=== PATIENT | female | born 1990 | race Caucasian/White ===

== ENCOUNTER 2020-10-01 15:05 | Emergency (ER) | payer OTHER, SELFPAY ==
[2020-10-01] VITALS (8 sets, daily range): BP systolic 115–158; BP diastolic 82–93; PULSE 70–103; RESP 18–20; TEMP 36.5–36.9; O2SAT 97–100
[2020-10-01 15:43] LABS: Basophils Percent Auto 0.3 % (0.2-1.2); Eosinophils Absolute Auto 0.1 K/mm3 (0-0.3); Eosinophils Percent Auto 0.8 % (0-4.4); Hemoglobin 9.8 g/dL (12.0-15.0); Immature Granulocyte Absolute 0.01 K/mm3 (0.00-0.031); Immature Granulocyte Percent A 0.2 % (0-0.5); Lymphocytes Absolute Auto 1.86 K/mm3 (0.9-3.2); Lymphocytes Percent Auto 29.7 % (18.3-44.2); Mean Corpuscular HGB Conc 33.8 g/dl (32-36); Mean Corpuscular Volume 94.8 fl (80-100); Mean Platelet Volume 10.2 fl (7.4-10.4); Monocytes Absolute Auto 0.5 K/mm3 (0.1-0.6); Monocytes Percent Auto 7.8 % (2.6-8.5); Neutrophils Absolute Auto 3.8 K/mm3 (1.3-6.7); Neutrophils Percent Auto 61.2 % (45.5-73.1); Platelet Count Result 238 k/mm3 (150-375); Red Blood Count 3.06 M/mm3 (4.2-5.4); Red Cell Distribution Width 12.3 % (11.5-14.5); White Blood Count 6.3 K/mm3 (4.5-10.0)
[2020-10-01 15:52] LABS: Anion Gap 4 mmol/L (8-16); Blood Urea Nitrogen 11 mg/dL (7-17); Calcium 9.4 mg/dL (8.4-10.2); Carbon Dioxide 28 mmol/L (22-30); Chloride 108 mmol/L (98-107); Estimated CRCL calculation 91 ml/min; Estimated Glomerular Filt Rate > 60; Glucose 127 mg/dL (65-105); Potassium 3.7 mmol/L (3.4-5.0); Sodium 140 mmol/L (137-145)
--- NOTE | 2020-10-01 15:56 | ED.GENADULT ---
HPI - General Adult General Chief complaint: Vaginal Bleeding Stated complaint: vaginal bleeding Time Seen by Provider: 10/01/20 15:15 Source: patient and RN notes reviewed Mode of arrival: ambulatory Limitations: no limitations History of Present Illness HPI narrative: Patient is a 30-year-old female who presents with vaginal bleeding has been present since 11:00 today patient notes she went through 3 tampons during this. Was in the shower for a prolonged period notes cramping of the abdomen patient has had this issue off and on usually spontaneously resolves patient is currently being monitored by gynecology for this is waiting to biopsy patient has history of tubal ligation would like hysterectomy or D&C moving forward patient notes minimal discomfort is not taken anything for symptoms presents per private vehicle patient is from [facility] patient is here with her children who are at an event. Patient on arrival does not appear uncomfortable or distressed. Patient notes she was in the emergency department on and her hemoglobin was around 9. Review of Systems Review of Systems: All systems reviewed & are unremarkable except as noted in HPI and below PMFSH Past Medical History Medical History (Updated 10/01/20 @ 15:59 by Jerry Angel PA-C) Factor V Leiden Surgical History Surgical History (Updated 10/01/20 @ 15:57 by Jerry Angel PA-C) H/O tubal ligation Social History Social History (Updated 10/01/20 @ 15:58 by Jerry Angel PA-C) Smoking status: Never smoker Gender identity (if verbalized by the patient): Female Exam Narrative: Exam Narrative: GENERAL: Well-appearing, well-nourished, and in no acute distress. HEAD: Normocephalic, atraumatic. EYES: PERRLA and EOMI. ENT: Nares clear, no rhinorrhea or epistaxis. Mucous membranes moist. CHEST: Clear to auscultation. No respiratory distress. No wheezes rales or rhonchi HEART: Regular rate and rhythm. No murmur heard. Normal peripheral pulses. ABDOMEN: Soft, nontender, nondistended FEMALE GENITOURINARY: Some dark blood in the vault no excessive bleeding otherwise unremarkable exam EXTREMITIES: Normal range of motion. No edema. SKIN: Warm, dry, no rash. NEURO: No focal deficits. Alert and oriented x3. PSYCH: Normal mood and affect. Course Course Emergency Course: Patient evaluated in the emergency department found to have vaginal bleeding hemodynamically stable hemoglobin at 9.8 she will be discharged with follow-up with her business solutions director patient agrees with this plan she has been advised to go home to rest and contact her business solutions director for thing in the morning has been given bleeding and pelvic precautions Vital Signs Vital signs: Vital Signs Temperature 97.7 F 10/01/20 15:07 Pulse Rate 103 H 10/01/20 15:07 Respiratory Rate 20 10/01/20 15:07 Blood Pressure 158/91 H 10/01/20 15:07 Pulse Oximetry 100 10/01/20 15:07 Temperature 98.5 F 10/01/20 16:20 Pulse Rate 71 10/01/20 16:20 Respiratory Rate 18 10/01/20 16:20 Blood Pressure 130/85 10/01/20 16:20 Pulse Oximetry 99 10/01/20 16:20 Medical Decision Making MDM Narrative Medical decision making narrative: ABCs and vital signs intact and stable patient aware of case findings treatment plan and diagnosis will be discharged home with plan follow-up with her business solutions director felt appropriate for outpatient reevaluation at this time Vital Signs Vital Signs: Vital Signs Temperature 97.7 F 10/01/20 15:07 Pulse Rate 103 H 10/01/20 15:07 Respiratory Rate 20 10/01/20 15:07 Blood Pressure 158/91 H 10/01/20 15:07 Pulse Oximetry 100 10/01/20 15:07 Temperature 98.5 F 10/01/20 16:20 Pulse Rate 71 10/01/20 16:20 Respiratory Rate 18 10/01/20 16:20 Blood Pressure 130/85 10/01/20 16:20 Pulse Oximetry 99 10/01/20 16:20 Lab Data Result diagrams: 10/01/20 15:38 10/01/20 15:38 Labs: Lab Results
[2020-10-01] MEDS: ONDANSETRON INJ 4 MG/2 ML VIAL IV PUSH (16:33)
[2020-10-01] MEDS: ACETAMINOPHEN 500 MG TABLET 1000 MG PO (16:35)
== END 2020-10-01 17:19 | disposition home or self-care (01) ==
PROVIDERS: Emergency Medicine Emergency Medical Services; Emergency Provider Emergency Medicine
DX: N93.8 Other specified abnormal uterine and vaginal bleeding (principal); D68.51 Activated protein C resistance
CPT/HCPCS: 36415; 80048; 85025; 96374; 99284; A9270; J2405